=== PATIENT | male | born 1945 | race Caucasian/White ===

== ENCOUNTER 2018-05-20 18:30 | Emergency (ER) | payer MEDICARE, OTHER ==
[~2018-05-20] VITALS: Ht 172.7 cm; Wt 65.3 kg
[2018-05-20 18:52] VITALS: BP 153/85
[2018-05-20] MEDS ORDERED: silver nitrate applicator stick TP ONE (21:20)
[2018-05-20] MEDS ORDERED: LIDOcaine Viscous 15ml cup MM ONE (21:20)
== END 2018-05-20 22:01 | disposition home or self-care (01) ==
LOC: ER 18:31
DX: R04.0 Epistaxis (principal)
CPT/HCPCS: 30901; 99284